=== PATIENT | female | born 1960 | race Caucasian/White ===

== ENCOUNTER 2016-05-17 08:51 | Emergency (ER) | payer OTHER ==
[~2016-05-17] VITALS: Ht 165.1 cm; Wt 59.9 kg
[2016-05-17 08:51] VITALS: BP 172/101
--- NOTE | 2016-05-17 08:51 | NUR ---
PT BIB [facility] TO BED 4 AT THIS TIME.
--- NOTE | 2016-05-17 08:59 | NUR ---
DR. CHAMBERS PRESENT AT BEDSIDE.
--- NOTE | 2016-05-17 09:01 | NUR ---
PATIENT PRESENTS TO ED A PREBOOK, CHARGED WITH DUI. PT STATES SHE WASN'T FEELING WELL THIS MORNING. DENIES N/V/D; ALTHOUGH C/O DIZZINESS AND PHOTOPHOBIA. SKIN IS PINK/WARM/DRY; AAOX4 WITH EVEN AND STEADY GAIT; LUNGS CLEAR BL; HR EVEN AND REGULAR; PT DENIES ANY FEVER, CP, SOB, OR COUGH AT THIS TIME; PATIENT STATES PAIN OF 0/10 AT THIS TIME; VSS; PATIENT POSITIONED FOR COMFORT; HOB ELEVATED; BEDRAILS UP X2; BED DOWN. ER MD MADE AWARE OF PT STATUS.
[2016-05-17] MEDS ORDERED: cloNIDine 0.1 MG TAB PO ONE (09:05)
[2016-05-17 10:20] VITALS: BP 165/85
--- NOTE | 2016-05-17 10:21 | NUR ---
Patient discharged with v/s stable. Written and verbal after care instructions given and explained. Patient alert, oriented and verbalized understanding of instructions. Ambulatory with in custody. All questions addressed prior to discharge. ID band removed. Patient advised to follow up with PMD. Rx of CLONIDINE given. Patient educated on indication of medication including possible reaction and side effects. Opportunity to ask questions provided and answered.
== END 2016-05-17 10:21 ==
LOC: MED 08:51
DX: Z04.8 Encounter for examination and observation for other specified reasons (principal); I10 Essential (primary) hypertension; E07.9 Disorder of thyroid, unspecified